=== PATIENT | female | born 1985 | race African-American/Black ===

== ENCOUNTER 2016-07-20 18:09 | Inpatient (IN) | payer OTHER ==
[~2016-07-20] VITALS: Ht 167.6 cm; Wt 118.4 kg
[~2016-07-20 18:09] MED LIST: INSU100I11 SQ; INSU100V8 SQ; OXYC-244 PO; OXYC15TA PO; VALA500T PO
[2016-07-20] MEDS ORDERED: MORPHINE SULFATE 4 MG/ML DISP.SYRIN. IV ONE (19:30)
[2016-07-20] MEDS ORDERED: ONDANSETRON PF 4 MG/2 ML VIAL. IV ONE (19:30)
[2016-07-20] MEDS ORDERED: LIDOCAINE 1% / SOD BICARB 8.4% 20 ML VIAL. IJ ONE (19:30)
[2016-07-20] MEDS ORDERED: DIPHTH,PERTUSS(ACELL),TET TOX 0.5 ML DISP.SYRIN. VAX IM ONE (19:30)
--- NOTE | 2016-07-20 19:31 | PHYS DOC ---
Past Medical History Past Medical History: Diabetes-Type II, Other Additional Past Medical Histor: Genital Herpes. Past Surgical History: No Surgical History Alcohol Use: None Drug Use: None Adult General Chief Complaint Chief Complaint: ABSCESS HPI HPI Patient is a 30 year old female presents emergency department stating that she has an abscess on her right buttocks comes in to the groin area. She states that she's had these areas for approximately 2 weeks. She states that the areas very tender and warm to touch with no drainage or discharge noted she states that she's been having some fevers with chills and occasional nausea and vomiting. She does state she is an insulin-dependent diabetic. States her glucose is been running approximately 120s. Patient is unsure when her last tetanus immunization occurred. Review of Systems Review of Systems Constitutional: Denies fever or chills [] Eyes: Denies change in visual acuity, redness, or eye pain [] HENT: Denies nasal congestion or sore throat [] Respiratory: Denies cough or shortness of breath [] Cardiovascular: No additional information not addressed in HPI [] GI: Denies abdominal pain, nausea, vomiting, bloody stools or diarrhea [] : Denies dysuria or hematuria [] Musculoskeletal: Denies back pain or joint pain [] Integument: Denies rash or skin lesions. Abscess to the right buttock into the perineal area Neurologic: Denies headache, focal weakness or sensory changes [] Current Medications Current Medications Current Medications Medications (Trade) Dose Ordered Sig/Aramis Start Time Stop Time Status Last Admin Dose Admin Diphtheria/ Tetanus/Acell Pertussis (Boostrix) 0.5 ml ONCE ONCE 07/20/16 19:30 07/20/16 19:31 DC 07/20/16 19:54 0.5 ML Lidocaine/Sodium Bicarbonate (Buffered Lidocaine 1%) 20 ml 1X ONCE 07/20/16 19:30 07/20/16 19:31 DC 07/20/16 20:17 20 ML Morphine Sulfate 4 mg PRN Q15MIN PRN 07/20/16 20:30 07/21/16 20:29 07/20/16 20:53 4 MG Ondansetron HCl (Zofran) 4 mg 1X ONCE 07/20/16 19:30 07/20/16 19:31 DC 07/20/16 19:53 4 MG Allergies Allergies Allergies Coded Allergies Type Severity Reaction Last Updated Verified No Known Drug Allergies 11/19/13 No Physical Exam Physical Exam Constitutional: Well developed, well nourished, no acute distress, non-toxic appearance. [] HENT: Normocephalic, atraumatic, bilateral external ears normal, oropharynx moist, no oral exudates, nose normal. [] Eyes: PERRLA, EOMI, conjunctiva normal, no discharge. [] Neck: Normal range of motion, no tenderness, supple, no stridor. [] Cardiovascular:Heart rate regular rhythm, no murmur [] Lungs & Thorax: Bilateral breath sounds clear to auscultation [] Skin: Warm, dry, no erythema, no rash. Abscess noted to the right buttock area with tenderness, redness and areas appearing soft indurated. Back: No tenderness Extremities: No tenderness, no cyanosis, no clubbing, ROM intact, no edema. [] Neurologic: Alert and oriented X 3, normal motor function, normal sensory function, no focal deficits noted. [] Psychologic: Affect normal, judgement normal, mood normal. [] Current Patient Data Vital Signs Vital Signs Date Time Temp Pulse Resp B/P Pulse Ox O2 Delivery O2 Flow Rate FiO2 07/20/16 20:09 98 150/69 96 Room Air 07/20/16 19:54 20 07/20/16 18:32 98.8 98.8 Lab Values Laboratory Tests Test 07/20/16 19:38 White Blood Count 15.8x10^3/uL (4.0-11.0) H Red Blood Count 5.10x10^6/uL (3.50-5.40) Hemoglobin 13.6g/dL (12.0-15.5) Hematocrit 41.3% (36.0-47.0) Mean Corpuscular Volume 81fL (79-100) Mean Corpuscular Hemoglobin 27pg (25-35) Mean Corpuscular Hemoglobin Concent 33g/dL (31-37) Red Cell Distribution Width 13.0% (11.5-14.5) Platelet Count 368x10^3/uL (140-400) Neutrophils (%) (Auto) 69% (31-73) Lymphocytes (%) (Auto) 22% (24-48) L Monocytes (%) (Auto) 9% (0-9) Eosinophils (%) (Auto) 0% (0-3) Basophils (%) (Auto) 1% (0-3) Neutrophils # (Auto) 10.9x10^3uL (1.8-7.7) H Lymphocytes # (Auto) 3.4x10^3/uL (1.0-4.8) Monocytes # (Auto) 1.4x10^3/uL (0.0-1.1) H Eosinophils # (Auto) 0.1x10^3/uL (0.0-0.7) Basophils # (Auto) 0.1x10^3/uL (0.0-0.2) Sodium Level 136mmol/L (136-145) Potassium Level 3.8mmol/L (3.5-5.1) Chloride Level 95mmol/L (98-107) L Carbon Dioxide Level 27mmol/L (21-32) Anion Gap 14 (6-14) Blood Urea Nitrogen 7mg/dL (7-20) Creatinine 0.8mg/dL (0.6-1.0) Estimated GFR (Cockcroft-Gault) 102.6 BUN/Creatinine Ratio 9 (6-20) Glucose Level 444mg/dL (70-99) H Calcium Level 10.4mg/dL (8.5-10.1) H Total Bilirubin 0.5mg/dL (0.2-1.0) Aspartate Amino Transferase (AST) 9U/L (15-37) L Alanine Aminotransferase (ALT) 17U/L (14-59) Alkaline Phosphatase 90U/L (46-116) Total Protein 9.5g/dL (6.4-8.2) H Albumin 3.6g/dL (3.4-5.0) Albumin/Globulin Ratio 0.6 (1.0-1.7) L Laboratory Tests 07/20/16 19:38 Laboratory Tests 07/20/16 19:38 EKG EKG [] Radiology/Procedures Radiology/Procedures [] Course & Med Decision Making Course & Med Decision Making Pertinent Labs and Imaging studies reviewed. (See chart for details) Attempted to I&D the areas on the left buttocks with patient unable to cooperate due to pain. Call was placed to Dr. Thompson who is on-call for Dr. Mays in regards to patient being admitted into the hospital for IV antibiotics as well as pain is of her glucoses and a surgical consult from the abscess drainage. Redrawn agreed with admission. Orders was written. [] Dragon Disclaimer Dragon Disclaimer This electronic medical record was generated, in whole or in part, using a voice recognition dictation system. Departure Departure Impression: Primary Impression: Abscess Additional Impressions: Cellulitis Hyperglycemia Disposition: 09 ADMITTED INPATIENT Admitting Physician: Other (Dr Faye Thompson) Referrals: EUGENIA MAYS MD (PCP) Problem Qualifiers ABDULKADIR DACOSTA [employer]LY[employer] Jul 20, 2016 19:31
[2016-07-20 20:06] LABS: BASO # 0.1 x10^3/uL (0.0-0.2); BASO % 1 % (0-3); EOS % 0 % (0-3); HEMATOCRIT 41.3 % (36.0-47.0); HEMOGLOBIN 13.6 g/dL (12.0-15.5); LYMPH # 3.4 x10^3/uL (1.0-4.8); LYMPH % 22 % (24-48); MEAN CORPUSCULAR HEMOGLOBIN 27 pg (25-35); MEAN CORPUSCULAR HGB CONC 33 g/dL (31-37); MEAN CORPUSCULAR VOLUME 81 fL (79-100); MONO % 9 % (0-9); NEUT % 69 % (31-73); PLATELET COUNT 368 x10^3/uL (140-400); WHITE BLOOD COUNT 15.8 x10^3/uL (4.0-11.0)
[2016-07-20 20:19] LABS: CALCIUM 10.4 mg/dL (8.5-10.1); CREATININE 0.8 mg/dL (0.6-1.0); GFR 102.6; POTASSIUM 3.8 mmol/L (3.5-5.1)
[2016-07-20 20:24] LABS: ALBUMIN 3.6 g/dL (3.4-5.0); ALBUMIN/GLOBULIN RATIO 0.6 (1.0-1.7); TOTAL BILIRUBIN 0.5 mg/dL (0.2-1.0); TOTAL PROTEIN 9.5 g/dL (6.4-8.2)
[2016-07-20] MEDS ORDERED: MORPHINE SULFATE 4 MG/ML DISP.SYRIN. IV/SQ PRN (20:30)
[2016-07-20] MEDS ORDERED: INSULIN REGULAR 100 UNIT/ML 10ML VIAL. SQ ONE (20:45)
[2016-07-20] MEDS ORDERED: IV NORMAL SALINE 1000ML BAG 1,000 ML IV ONE (20:45)
[2016-07-20] MEDS ORDERED: ONDANSETRON PF 4 MG/2 ML VIAL. IV PRN (21:15)
[2016-07-20 21:48] VITALS: BP 127/56
--- NOTE | 2016-07-20 21:53 | ACF ---
Admission Forms Criteria CELLULITIS Clinical Indications for Admission to Inpatient Care (Place 'X' for any and all applicable criteria): Admission is indicated for ANY ONE of the following(1)(2)(3)(4)(5): [ ]I. Limb-threatening infection [ ]II. High-risk comorbid condition as indicated by ANY ONE of the following: [ ]a) Uncontrolled diabetes (eg, HbA1c greater than 10% (0.1)) [ ]b) Cirrhosis [ ]c) Neutropenia [ ]d) Asplenia [ ]e) Immunosuppression [ ]f) Symptomatic heart failure [ ]III. Failure of outpatient therapy as indicated by ALL of the following: [ ]a) Progression or no improvement after adequate trial (minimum of 48 hours, with longer period for stable lower extremity infection) [ ]b) Adequate antibiotic regimen as indicated by use of ANY ONE of the following: [ ]i) First-generation cephalosporin (e.g., cephalexin) [ ]ii) Antistaphylococcal penicillin (e.g., dicloxacillin) [ ]iii) Penicillin-allergic patient regimen (clindamycin, extended-spectrum fluoroquinolone, or doxycycline) [ ]iv) Resistant organism (eg, methicillin-resistant Staphylococcus aureus) regimen (6) [ ]c) Outpatient intravenous therapy regimen is not appropriate due to ANY ONE of the following. (7)(8)(9)(10): [ ]i) It was tried and was not successful (eg, progression of infection). [ ]ii) It is not available or cannot be arranged in a clinically appropriate time frame (e.g., the next day). [ ]iii) Clinical presentation (eg, acuity of infection, rapidity of progression, confirmed or suspected bacteremia) is judged to require ALL of the following: [ ]1) Immediate initiation of intravenous therapy ( eg, cannot wait for next day) [ ]2) Intensity of patient monitoring and observation (eg, vital sign measurement, checks for infection progression) that cannot be provided at other than inpatient level of care [ ]IV. Mental status changes [ ]V. Bacteremia [ ]. Hemodynamic instability [ ]VII. Suspected necrotizing soft tissue infection (e.g., gas in tissue)(11)( 12) [ ]VIII. Orbital infection (13)(14) [ ]IX. Associated surgical procedure (e.g., abscess drainage, debridement) not amenable to outpatient, emergency department, or observation care [ ]X. Cutaneous gangrene [ ]XI. High fever (temperature greater than 39.5 degrees C (103.1 degrees F) (oral)) not responsive to outpatient, emergency department, or observation care therapy [X]XIII. Inpatient admission required rather than observation care (Also use Cellulitis: Observation Care as appropriate) because of ANY ONE of the following : [ ]a) Periorbital or perineal infection that is severe or worsening [ ]b) Severe pain requiring acute inpatient management [ ]c) IV fluid to replace significant ongoing (e.g., for over 24 hours) losses (greater than 3L/m2 per day) [ ]d) Compartment syndrome monitoring (17) [ ]e) Strict or protective (eg, laminar flow) isolation [ ]f) Urgent debridement or skin grafting [ ]g) Bone or joint debridement [ ]h) Immediate inpatient surgery [X]i) Other condition, treatment or monitoring requiring inpatient admission Extended stay beyond goal length of stay may be needed for (1)(18): [ ]a) Necrotizing soft tissue infection or fasciitis [ ]b) Gram-negative infection [ ]c) Methicillin-resistant Staphylococcal aureus (MRSA) infection [ ]d) Peripheral venous insufficiency with cellulitis [ ]e) Extensive edema [ ]f) Sepsis or continued Hemodynamic instability [ ]g) Continued high fever or mental status change [ ]h) Bacteremia [ ]i) Active serious comorbid conditions ( eg, heart failure, renal insufficiency) The original [employer] content created by [employer] has been revised. The portions of the content which have been revised are identified through the use of italic text or in bold, and [facility] has neither reviewed nor approved the modified material. All other unmodified content is copyright [facility] Please see references footnoted in the original [facility] edition 2016 Admission Criteria Met?: Yes DEREK DUARTE Jul 20, 2016 21:53
[2016-07-20] MEDS ORDERED: CLINDAMYCIN 600MG PREMIX 50 ML IV ONE (22:00)
[2016-07-20] MEDS ORDERED: DEXTROSE 50% 25 GM / 50ML DISP.SYRIN. IV PRN (22:30)
[2016-07-20] MEDS: MORPHINE SULFATE 4 MG/ML DISP.SYRIN. IV PRN (22:46)
[2016-07-20] MEDS: IV NORMAL SALINE 1000ML BAG 1,000 ML IV SCH (22:48)
[2016-07-20] MEDS ORDERED: INSULIN ASPART 300 UNITS/3 ML INSULN.PEN SQ ONE (23:00)
[2016-07-20] MEDS: INSULIN DETEMIR 300 UNITS/3 ML INSULN.PEN. SQ SCH (23:05)
[2016-07-21] VITALS (14 sets, daily range): BP systolic 104–132; BP diastolic 49–76
[2016-07-21] MEDS: MORPHINE SULFATE 4 MG/ML DISP.SYRIN. IV PRN ×5 (03:00→19:24)
[2016-07-21] MEDS: CLINDAMYCIN 600MG PREMIX 50 ML IV SCH ×3 (06:03→22:03)
[2016-07-21 07:36] LABS: BASO # 0.1 x10^3/uL (0.0-0.2); BASO % 0 % (0-3); EOS % 1 % (0-3); HEMATOCRIT 36.3 % (36.0-47.0); HEMOGLOBIN 11.6 g/dL (12.0-15.5); LYMPH # 4.2 x10^3/uL (1.0-4.8); LYMPH % 29 % (24-48); MEAN CORPUSCULAR HEMOGLOBIN 26 pg (25-35); MEAN CORPUSCULAR HGB CONC 32 g/dL (31-37); MEAN CORPUSCULAR VOLUME 81 fL (79-100); MONO % 10 % (0-9); NEUT % 59 % (31-73); PLATELET COUNT 329 x10^3/uL (140-400); RED BLOOD COUNT 4.47 x10^6/uL (3.50-5.40); RED CELL DISTRIBUTION WIDTH 12.9 % (11.5-14.5); WHITE BLOOD COUNT 14.5 x10^3/uL (4.0-11.0)
[2016-07-21 07:46] LABS: CREATININE 0.7 mg/dL (0.6-1.0); GFR 119.7; POTASSIUM 3.5 mmol/L (3.5-5.1)
--- NOTE | 2016-07-21 08:23 | PDOC1 ---
History and Physical Date of Admission Date of Admission DATE: 07/20/16 Identification/Chief Complaint Chief Complaint Leg Pain Source Source: Patient History of Present Illness History of Present Illness Pt states that she has had a boil for the past 2 weeks. She has been trying OTC medications and initially didn't think much of it, but as it continued to enlarge and increase in pain, pt finally decided to come to the ER. States that she has difficulty walking because of the pain. She has had some fevers and chills for the past couple of days. Past Medical History Cardiovascular: HTN Pulmonary: No pertinent hx GI: No pertinent hx Heme/Onc: No pertinent hx Hepatobiliary: No pertinent hx Psych: No pertinent hx Rheumatologic: No pertinent hx Infectious disease: Herpes simplex2 ENT: No pertinent hx Renal/: No pertinent hx Endocrine: Diabetes Dermatology: No pertinent hx Past Surgical History Past Surgical History: , Other (I&D) Family History Family History: Diabetes, Heart Disease, High Cholestrol, Hypertension Social History Smoke: <1 pack per day ALCOHOL: none Drugs: None Current Problem List Problem List Problems Medical Problems: (1) Abscess Status: Acute (2) Cellulitis Status: Acute (3) Hyperglycemia Status: Acute Problems: Current Medications Current Medications Current Medications Morphine Sulfate 4 mg 1X ONCE IV Last administered on 07/20/16 19:54; Start 07/20/16 at 19:30; Stop 07/20/16 at 19:31; Status DC Ondansetron HCl (Zofran) 4 mg 1X ONCE IV Last administered on 07/20/16 19:53 ; Start 07/20/16 at 19:30; Stop 07/20/16 at 19:31; Status DC Lidocaine/Sodium Bicarbonate (Buffered Lidocaine 1%) 20 ml 1X ONCE IJ Last administered on 07/20/16 20:17; Start 07/20/16 at 19:30; Stop 07/20/16 at 19:31 ; Status DC Diphtheria/ Tetanus/Acell Pertussis (Boostrix) 0.5 ml ONCE ONCE VAX IM Last administered on 07/20/16 19:54; Start 07/20/16 at 19:30; Stop 07/20/16 at 19:31 ; Status DC Morphine Sulfate 4 mg 4 mg PRN Q15MIN PRN IV/SQ PAIN GREATER THAN 3/10 Last administered on 07/20/16 20:53; Start 07/20/16 at 20:30; Stop 07/21/16 at 20:29 Sodium Chloride (Iv Sodium Chloride 0.9% 1000ml Bag) 1,000 ml @ 1,000 mls/hr 1X ONCE IV Last administered on 07/20/16 20:45; Start 07/20/16 at 20:45; Stop 07/20/16 at 21:44; Status DC Insulin Human Regular (Novolin R Vial) 10 unit 1X ONCE SQ Last administered on 07/20/16 20:58; Start 07/20/16 at 20:45; Stop 07/20/16 at 20:46; Status DC Ondansetron HCl (Zofran) 4 mg PRN Q8HRS PRN IV NAUSEA/VOMITING; Start 07/20/16 at 21:15; Stop 07/21/16 at 21:14 Morphine Sulfate 4 mg 4 mg PRN Q2HR PRN IV PAIN Last administered on 07/21/16 06:04; Start 07/20/16 at 21:15; Stop 07/21/16 at 21:14 Sodium Chloride 1,000 ml @ 125 mls/hr Q8H IV Last administered on 07/20/16 22 :48; Start 07/20/16 at 21:06; Stop 07/21/16 at 21:05 Clindamycin Phosphate 50 ml @ 100 mls/hr Q8HRS IV Last administered on 06:03; Start 07/21/16 at 06:00 Clindamycin Phosphate (Cleocin 600 Mg Premix) 50 ml @ 100 mls/hr 1X ONCE IV Last administered on 07/20/16 22:47; Start 07/20/16 at 22:00; Stop 07/20/16 at 22:29; Status DC Insulin Detemir (Levemir) 27 units QHS SQ Last administered on 07/20/16 23:05 ; Start 07/20/16 at 23:00 Insulin Aspart (Novolog) 0-7 UNITS TIDWMEALS SQ ; Start 07/21/16 at 08:00 Dextrose 12.5 gm PRN Q15MIN PRN IV SEE COMMENTS; Start 07/20/16 at 22:30 Insulin Aspart (Novolog) 5 units 1X ONCE SQ Last administered on 3/30/17at 23: 06; Start 07/20/16 at 23:00; Stop 07/20/16 at 23:01; Status DC Active Scripts Active Percocet 7.5-325 Mg Tablet (Oxycodone/Acetaminophen) 1 Each Tablet 1 Tab PO Q4HRS PRN Oxycodone Hcl 15 Mg Tablet 15 Mg PO Q6HRS PRN Humalog (Insulin Lispro) 100 Unit/1 Ml Insuln.pen 9 Unit SQ TIDAC Reported Valacyclovir (Valacyclovir Hcl) 500 Mg Tablet 500 Mg PO Lantus (Insulin Glargine,Hum.rec.anlog) 100 Unit/1 Ml Vial 16 Unit SQ QHS Allergies Allergies: Coded Allergies: No Known Drug Allergies (Unverified , 11/19/13) ROS General: YES: Chills, No: Fatigue PSYCHOLOGICAL ROS: No: Anxiety, Depression Eyes: No Decreased vision, No Eye Pain HEENT: No: Nasal congestion, Sore Throat ALLERGY AND IMMUNOLOGY: No: Hives, Post Nasal Drip Hematological and Lymphatic: No: Bleeding Problems, Blood Clots Respiratory: No: Cough, Shortness of breath Cardiovascular: No Chest Pain, No Edema Gastrointestinal: Yes Nausea, Yes Vomiting, No Abdominal Pain, No Constipation, No Diarrhea Genitourinary: No Dysuria, No Urgency Musculoskeletal: No Joint Pain, No Muscle Pain Neurological: No Impaired Coord/balance, No Numbness/Tingling Skin: Yes Skin Lesion Changes, No Rash Physical Exam General: Alert, Oriented X3, Cooperative HEENT: Atraumatic, PERRLA, EOMI, Mucous membr. moist/pink Lungs: Clear to auscultation, Normal air movement Heart: RRR, no rubs, no gallops, no murmurs Abdomen: Normal bowel sounds, Soft, No tenderness, No hepatosplenomegaly Extremities: No clubbing, No cyanosis Skin: Other (large mass with fluctuance under right buttocks) Neuro: Normal speech, Cranial nerves 3-12 NL Psych/Mental Status: Mental status NL, Mood NL Vitals Vitals Vital Signs Date Time Temp Pulse Resp B/P Pulse Ox O2 Delivery O2 Flow Rate FiO2 07/21/16 07:00 98.3 81 20 124/70 96 Room Air 98.3 Labs Labs Laboratory Tests Test 07/20/16 19:38 07/20/16 21:54 07/21/16 07:09 07/21/16 07:23 White Blood Count 15.8x10^3/uL (4.0-11.0) 14.5x10^3/uL (4.0-11.0) Red Blood Count 5.10x10^6/uL (3.50-5.40) 4.47x10^6/uL (3.50-5.40) Hemoglobin 13.6g/dL (12.0-15.5) 11.6g/dL (12.0-15.5) Hematocrit 41.3% (36.0-47.0) 36.3% (36.0-47.0) Mean Corpuscular Volume 81fL (79-100) 81fL (79-100) Mean Corpuscular Hemoglobin 27pg (25-35) 26pg (25-35) Mean Corpuscular Hemoglobin Concent 33g/dL (31-37) 32g/dL (31-37) Red Cell Distribution Width 13.0% (11.5-14.5) 12.9% (11.5-14.5) Platelet Count 368x10^3/uL (140-400) 329x10^3/uL (140-400) Neutrophils (%) (Auto) 69% (31-73) 59% (31-73) Lymphocytes (%) (Auto) 22% (24-48) 29% (24-48) Monocytes (%) (Auto) 9% (0-9) 10% (0-9) Eosinophils (%) (Auto) 0% (0-3) 1% (0-3) Basophils (%) (Auto) 1% (0-3) 0% (0-3) Neutrophils # (Auto) 10.9x10^3uL (1.8-7.7) 8.6x10^3uL (1.8-7.7) Lymphocytes # (Auto) 3.4x10^3/uL (1.0-4.8) 4.2x10^3/uL (1.0-4.8) Monocytes # (Auto) 1.4x10^3/uL (0.0-1.1) 1.4x10^3/uL (0.0-1.1) Eosinophils # (Auto) 0.1x10^3/uL (0.0-0.7) 0.2x10^3/uL (0.0-0.7) Basophils # (Auto) 0.1x10^3/uL (0.0-0.2) 0.1x10^3/uL (0.0-0.2) Sodium Level 136mmol/L (136-145) 139mmol/L (136-145) Potassium Level 3.8mmol/L (3.5-5.1) 3.5mmol/L (3.5-5.1) Chloride Level 95mmol/L (98-107) 101mmol/L (98-107) Carbon Dioxide Level 27mmol/L (21-32) 27mmol/L (21-32) Anion Gap 14 (6-14) 11 (6-14) Blood Urea Nitrogen 7mg/dL (7-20) 6mg/dL (7-20) Creatinine 0.8mg/dL (0.6-1.0) 0.7mg/dL (0.6-1.0) Estimated GFR (Cockcroft-Gault) 102.6 119.7 BUN/Creatinine Ratio 9 (6-20) Glucose Level 444mg/dL (70-99) 236mg/dL (70-99) Calcium Level 10.4mg/dL (8.5-10.1) 9.0mg/dL (8.5-10.1) Total Bilirubin 0.5mg/dL (0.2-1.0) Aspartate Amino Transf (AST/SGOT) 9U/L (15-37) Alanine Aminotransferase (ALT/SGPT) 17U/L (14-59) Alkaline Phosphatase 90U/L (46-116) Total Protein 9.5g/dL (6.4-8.2) Albumin 3.6g/dL (3.4-5.0) Albumin/Globulin Ratio 0.6 (1.0-1.7) Glucose (Fingerstick) 334mg/dL (70-99) 228mg/dL (70-99) Laboratory Tests Test 07/20/16 19:38 07/20/16 21:54 07/21/16 07:09 07/21/16 07:23 White Blood Count 15.8x10^3/uL (4.0-11.0) 14.5x10^3/uL (4.0-11.0) Red Blood Count 5.10x10^6/uL (3.50-5.40) 4.47x10^6/uL (3.50-5.40) Hemoglobin 13.6g/dL (12.0-15.5) 11.6g/dL (12.0-15.5) Hematocrit 41.3% (36.0-47.0) 36.3% (36.0-47.0) Mean Corpuscular Volume 81fL (79-100) 81fL (79-100) Mean Corpuscular Hemoglobin 27pg (25-35) 26pg (25-35) Mean Corpuscular Hemoglobin Concent 33g/dL (31-37) 32g/dL (31-37) Red Cell Distribution Width 13.0% (11.5-14.5) 12.9% (11.5-14.5) Platelet Count 368x10^3/uL (140-400) 329x10^3/uL (140-400) Neutrophils (%) (Auto) 69% (31-73) 59% (31-73) Lymphocytes (%) (Auto) 22% (24-48) 29% (24-48) Monocytes (%) (Auto) 9% (0-9) 10% (0-9) Eosinophils (%) (Auto) 0% (0-3) 1% (0-3) Basophils (%) (Auto) 1% (0-3) 0% (0-3) Neutrophils # (Auto) 10.9x10^3uL (1.8-7.7) 8.6x10^3uL (1.8-7.7) Lymphocytes # (Auto) 3.4x10^3/uL (1.0-4.8) 4.2x10^3/uL (1.0-4.8) Monocytes # (Auto) 1.4x10^3/uL (0.0-1.1) 1.4x10^3/uL (0.0-1.1) Eosinophils # (Auto) 0.1x10^3/uL (0.0-0.7) 0.2x10^3/uL (0.0-0.7) Basophils # (Auto) 0.1x10^3/uL (0.0-0.2) 0.1x10^3/uL (0.0-0.2) Sodium Level 136mmol/L (136-145) 139mmol/L (136-145) Potassium Level 3.8mmol/L (3.5-5.1) 3.5mmol/L (3.5-5.1) Chloride Level 95mmol/L (98-107) 101mmol/L (98-107) Carbon Dioxide Level 27mmol/L (21-32) 27mmol/L (21-32) Anion Gap 14 (6-14) 11 (6-14) Blood Urea Nitrogen 7mg/dL (7-20) 6mg/dL (7-20) Creatinine 0.8mg/dL (0.6-1.0) 0.7mg/dL (0.6-1.0) Estimated GFR (Cockcroft-Gault) 102.6 119.7 BUN/Creatinine Ratio 9 (6-20) Glucose Level 444mg/dL (70-99) 236mg/dL (70-99) Calcium Level 10.4mg/dL (8.5-10.1) 9.0mg/dL (8.5-10.1) Total Bilirubin 0.5mg/dL (0.2-1.0) Aspartate Amino Transf (AST/SGOT) 9U/L (15-37) Alanine Aminotransferase (ALT/SGPT) 17U/L (14-59) Alkaline Phosphatase 90U/L (46-116) Total Protein 9.5g/dL (6.4-8.2) Albumin 3.6g/dL (3.4-5.0) Albumin/Globulin Ratio 0.6 (1.0-1.7) Glucose (Fingerstick) 334mg/dL (70-99) 228mg/dL (70-99) VTE Prophylaxis Ordered VTE Prophylaxis Devices: No VTE Pharmacological Prophylaxi: No Assessment/Plan Assessment/Plan Pt is a 30yo AAF admitted for large gluteal abscess on the right side 1)Gluteal abscess- with elevated WBC. Surgery has been consulted. She is receiving Clindamycin and has medication available for pain. 2)DM2- poorly controlled. Pt has SSI available and Levemir 27 units. States has been controlled at home, could be elevated 2/2 infection 3)Anemia- mild, no active bleeding 4)HTN- well controlled with Nifedipine 60mg ER CHRIS BRAUN MD Jul 21, 2016 08:23
[2016-07-21] MEDS: IV NORMAL SALINE 1000ML BAG 1,000 ML IV SCH ×2 (08:48→13:06)
[2016-07-21] MEDS: INSULIN ASPART 300 UNITS/3 ML INSULN.PEN SQ SCH ×3 (08:54→18:02)
[2016-07-21] MEDS ORDERED: IV RINGERS,LACTATED 1000ML 1,000 ML IV SCH (12:28)
[2016-07-21] MEDS ORDERED: ONDANSETRON PF 4 MG/2 ML VIAL. IV PRN (12:30)
[2016-07-21] MEDS ORDERED: HYDROMORPHONE 2 MG/ML VIAL. IV PRN (12:30)
[2016-07-21] MEDS ORDERED: LIDOCAINE 1% 1 ML SYRINGE. ID PRN (12:30)
[2016-07-21] MEDS ORDERED: FENTANYL PF 100 MCG/2 ML VIAL. IV PRN (12:30)
[2016-07-21] MEDS ORDERED: PROCHLORPERAZINE 10 MG/2 ML VIAL. IV PRN (12:30)
[2016-07-21] MEDS ORDERED: MORPHINE SULFATE 2 MG/ML DISP.SYRIN. IV PRN (12:30)
--- NOTE | 2016-07-21 12:37 | PDOC2 ---
CONSULT Date of Consult Date of Consult DATE: 07/21/16 TIME: 12:33 Reason for Consult Reason for Consult: Right gluteal abscess Referring Physician Referring Physician: Jay Identification/Chief Complaint Chief Complaint Right buttock pain and swelling Source Source: Patient History of Present Illness Reason for Visit: 30 yo obese female with several weeks history of right buttock pain and swelling which became worse yesterday. Past Medical History Endocrine: Diabetes Past Surgical History Past Surgical History: No pertinent history Family History Family History: Diabetes Social History ALCOHOL: none Drugs: None Current Problem List Problem List Problems Medical Problems: (1) Abscess Status: Acute (2) Cellulitis Status: Acute (3) Hyperglycemia Status: Acute Current Medications Current Medications Current Medications Morphine Sulfate 4 mg 1X ONCE IV Last administered on 07/20/16 19:54; Start 07/20/16 at 19:30; Stop 07/20/16 at 19:31; Status DC Ondansetron HCl (Zofran) 4 mg 1X ONCE IV Last administered on 07/20/16 19:53 ; Start 07/20/16 at 19:30; Stop 07/20/16 at 19:31; Status DC Lidocaine/Sodium Bicarbonate (Buffered Lidocaine 1%) 20 ml 1X ONCE IJ Last administered on 07/20/16 20:17; Start 07/20/16 at 19:30; Stop 07/20/16 at 19:31 ; Status DC Diphtheria/ Tetanus/Acell Pertussis (Boostrix) 0.5 ml ONCE ONCE VAX IM Last administered on 07/20/16 19:54; Start 07/20/16 at 19:30; Stop 07/20/16 at 19:31 ; Status DC Morphine Sulfate 4 mg 4 mg PRN Q15MIN PRN IV/SQ PAIN GREATER THAN 3/10 Last administered on 07/20/16 20:53; Start 07/20/16 at 20:30; Stop 07/21/16 at 20:29 Sodium Chloride (Iv Sodium Chloride 0.9% 1000ml Bag) 1,000 ml @ 1,000 mls/hr 1X ONCE IV Last administered on 07/20/16 20:45; Start 07/20/16 at 20:45; Stop 07/20/16 at 21:44; Status DC Insulin Human Regular (Novolin R Vial) 10 unit 1X ONCE SQ Last administered on 07/20/16 20:58; Start 07/20/16 at 20:45; Stop 07/20/16 at 20:46; Status DC Ondansetron HCl (Zofran) 4 mg PRN Q8HRS PRN IV NAUSEA/VOMITING; Start 07/20/16 at 21:15; Stop 07/21/16 at 21:14 Morphine Sulfate 4 mg 4 mg PRN Q2HR PRN IV PAIN Last administered on 07/21/16 12:22; Start 07/20/16 at 21:15; Stop 07/21/16 at 21:14 Sodium Chloride 1,000 ml @ 125 mls/hr Q8H IV Last administered on 07/21/16 08 :48; Start 07/20/16 at 21:06; Stop 07/21/16 at 21:05 Clindamycin Phosphate 50 ml @ 100 mls/hr Q8HRS IV Last administered on 06:03; Start 07/21/16 at 06:00 Clindamycin Phosphate (Cleocin 600 Mg Premix) 50 ml @ 100 mls/hr 1X ONCE IV Last administered on 07/20/16 22:47; Start 07/20/16 at 22:00; Stop 07/20/16 at 22:29; Status DC Insulin Detemir (Levemir) 27 units QHS SQ Last administered on 07/20/16 23:05 ; Start 07/20/16 at 23:00 Insulin Aspart (Novolog) 0-7 UNITS TIDWMEALS SQ Last administered on 07/21/16 12:25; Start 07/21/16 at 08:00 Dextrose 12.5 gm PRN Q15MIN PRN IV SEE COMMENTS; Start 07/20/16 at 22:30 Insulin Aspart (Novolog) 5 units 1X ONCE SQ Last administered on 07/20/16 23: 06; Start 07/20/16 at 23:00; Stop 07/20/16 at 23:01; Status DC Ondansetron HCl (Zofran) 0.4 mg PRN Q6HRS PRN IV NAUSEA/VOMITING; Start at 12:30; Stop 07/22/16 at 12:29; Status UNV Fentanyl Citrate (Fentanyl 2ml Vial) 25 mcg PRN Q5MIN PRN IV MILD PAIN; Start 07/21/16 at 12:30; Stop 07/22/16 at 12:29; Status UNV Fentanyl Citrate (Fentanyl 2ml Vial) 50 mcg PRN Q5MIN PRN IV MODERATE PAIN; Start 07/21/16 at 12:30; Stop 07/22/16 at 12:29; Status UNV Morphine Sulfate 1 mg 1 mg PRN Q10MIN PRN IV SEVERE PAIN; Start 07/21/16 at 12: 30; Stop 07/22/16 at 12:29; Status UNV Lactated Ringer's (Iv Lactated Ringers) 1,000 ml @ 0 mls/hr Q0M IV ; Start at 12:28; Stop 07/22/16 at 00:27; Status UNV Lidocaine HCl 2 ml PRN 1X PRN ID PRIOR TO IV START; Start 07/21/16 at 12:30; Stop 07/22/16 at 12:29; Status UNV Hydromorphone HCl (Dilaudid) 0.5 mg PRN Q10MIN PRN IV SEV PAIN, Second choice; Start 07/21/16 at 12:30; Stop 07/22/16 at 12:29; Status UNV Prochlorperazine Edisylate (Compazine) 5 mg PACU PRN PRN IV NAUSEA, MRX1; Start 07/21/16 at 12:30; Stop 07/22/16 at 12:29; Status UNV Active Scripts Active Percocet 7.5-325 Mg Tablet (Oxycodone/Acetaminophen) 1 Each Tablet 1 Tab PO Q4HRS PRN Oxycodone Hcl 15 Mg Tablet 15 Mg PO Q6HRS PRN Humalog (Insulin Lispro) 100 Unit/1 Ml Insuln.pen 9 Unit SQ TIDAC Reported Valacyclovir (Valacyclovir Hcl) 500 Mg Tablet 500 Mg PO Lantus (Insulin Glargine,Hum.rec.anlog) 100 Unit/1 Ml Vial 16 Unit SQ QHS Allergies Allergies: Coded Allergies: No Known Drug Allergies (Unverified , 11/19/13) ROS Skin: Yes Other (swelling right buttock) Physical Exam General: Alert, Oriented X3, Cooperative, moderate distress HEENT: Atraumatic, PERRLA, EOMI Lungs: Clear to auscultation, Normal air movement Heart: Regular rate, No murmurs Abdomen: Normal bowel sounds, Soft, No tenderness Extremities: No edema Skin: Other (right pernieum sweeling and erythema) Neuro: Normal speech Psych/Mental Status: Mental status NL Vitals VITALS Vital Signs Date Time Temp Pulse Resp B/P Pulse Ox O2 Delivery O2 Flow Rate FiO2 07/21/16 12:22 Room Air 07/21/16 11:00 99.2 77 16 122/56 93 99.2 Labs Labs Laboratory Tests Test 07/20/16 19:38 07/20/16 21:54 07/21/16 07:09 07/21/16 07:23 White Blood Count 15.8x10^3/uL (4.0-11.0) 14.5x10^3/uL (4.0-11.0) Red Blood Count 5.10x10^6/uL (3.50-5.40) 4.47x10^6/uL (3.50-5.40) Hemoglobin 13.6g/dL (12.0-15.5) 11.6g/dL (12.0-15.5) Hematocrit 41.3% (36.0-47.0) 36.3% (36.0-47.0) Mean Corpuscular Volume 81fL (79-100) 81fL (79-100) Mean Corpuscular Hemoglobin 27pg (25-35) 26pg (25-35) Mean Corpuscular Hemoglobin Concent 33g/dL (31-37) 32g/dL (31-37) Red Cell Distribution Width 13.0% (11.5-14.5) 12.9% (11.5-14.5) Platelet Count 368x10^3/uL (140-400) 329x10^3/uL (140-400) Neutrophils (%) (Auto) 69% (31-73) 59% (31-73) Lymphocytes (%) (Auto) 22% (24-48) 29% (24-48) Monocytes (%) (Auto) 9% (0-9) 10% (0-9) Eosinophils (%) (Auto) 0% (0-3) 1% (0-3) Basophils (%) (Auto) 1% (0-3) 0% (0-3) Neutrophils # (Auto) 10.9x10^3uL (1.8-7.7) 8.6x10^3uL (1.8-7.7) Lymphocytes # (Auto) 3.4x10^3/uL (1.0-4.8) 4.2x10^3/uL (1.0-4.8) Monocytes # (Auto) 1.4x10^3/uL (0.0-1.1) 1.4x10^3/uL (0.0-1.1) Eosinophils # (Auto) 0.1x10^3/uL (0.0-0.7) 0.2x10^3/uL (0.0-0.7) Basophils # (Auto) 0.1x10^3/uL (0.0-0.2) 0.1x10^3/uL (0.0-0.2) Sodium Level 136mmol/L (136-145) 139mmol/L (136-145) Potassium Level 3.8mmol/L (3.5-5.1) 3.5mmol/L (3.5-5.1) Chloride Level 95mmol/L (98-107) 101mmol/L (98-107) Carbon Dioxide Level 27mmol/L (21-32) 27mmol/L (21-32) Anion Gap 14 (6-14) 11 (6-14) Blood Urea Nitrogen 7mg/dL (7-20) 6mg/dL (7-20) Creatinine 0.8mg/dL (0.6-1.0) 0.7mg/dL (0.6-1.0) Estimated GFR (Cockcroft-Gault) 102.6 119.7 BUN/Creatinine Ratio 9 (6-20) Glucose Level 444mg/dL (70-99) 236mg/dL (70-99) Calcium Level 10.4mg/dL (8.5-10.1) 9.0mg/dL (8.5-10.1) Total Bilirubin 0.5mg/dL (0.2-1.0) Aspartate Amino Transf (AST/SGOT) 9U/L (15-37) Alanine Aminotransferase (ALT/SGPT) 17U/L (14-59) Alkaline Phosphatase 90U/L (46-116) Total Protein 9.5g/dL (6.4-8.2) Albumin 3.6g/dL (3.4-5.0) Albumin/Globulin Ratio 0.6 (1.0-1.7) Glucose (Fingerstick) 334mg/dL (70-99) 228mg/dL (70-99) Test 07/21/16 11:40 Glucose (Fingerstick) 235mg/dL (70-99) Laboratory Tests Test 07/20/16 19:38 07/20/16 21:54 07/21/16 07:09 07/21/16 07:23 White Blood Count 15.8x10^3/uL (4.0-11.0) 14.5x10^3/uL (4.0-11.0) Red Blood Count 5.10x10^6/uL (3.50-5.40) 4.47x10^6/uL (3.50-5.40) Hemoglobin 13.6g/dL (12.0-15.5) 11.6g/dL (12.0-15.5) Hematocrit 41.3% (36.0-47.0) 36.3% (36.0-47.0) Mean Corpuscular Volume 81fL (79-100) 81fL (79-100) Mean Corpuscular Hemoglobin 27pg (25-35) 26pg (25-35) Mean Corpuscular Hemoglobin Concent 33g/dL (31-37) 32g/dL (31-37) Red Cell Distribution Width 13.0% (11.5-14.5) 12.9% (11.5-14.5) Platelet Count 368x10^3/uL (140-400) 329x10^3/uL (140-400) Neutrophils (%) (Auto) 69% (31-73) 59% (31-73) Lymphocytes (%) (Auto) 22% (24-48) 29% (24-48) Monocytes (%) (Auto) 9% (0-9) 10% (0-9) Eosinophils (%) (Auto) 0% (0-3) 1% (0-3) Basophils (%) (Auto) 1% (0-3) 0% (0-3) Neutrophils # (Auto) 10.9x10^3uL (1.8-7.7) 8.6x10^3uL (1.8-7.7) Lymphocytes # (Auto) 3.4x10^3/uL (1.0-4.8) 4.2x10^3/uL (1.0-4.8) Monocytes # (Auto) 1.4x10^3/uL (0.0-1.1) 1.4x10^3/uL (0.0-1.1) Eosinophils # (Auto) 0.1x10^3/uL (0.0-0.7) 0.2x10^3/uL (0.0-0.7) Basophils # (Auto) 0.1x10^3/uL (0.0-0.2) 0.1x10^3/uL (0.0-0.2) Sodium Level 136mmol/L (136-145) 139mmol/L (136-145) Potassium Level 3.8mmol/L (3.5-5.1) 3.5mmol/L (3.5-5.1) Chloride Level 95mmol/L (98-107) 101mmol/L (98-107) Carbon Dioxide Level 27mmol/L (21-32) 27mmol/L (21-32) Anion Gap 14 (6-14) 11 (6-14) Blood Urea Nitrogen 7mg/dL (7-20) 6mg/dL (7-20) Creatinine 0.8mg/dL (0.6-1.0) 0.7mg/dL (0.6-1.0) Estimated GFR (Cockcroft-Gault) 102.6 119.7 BUN/Creatinine Ratio 9 (6-20) Glucose Level 444mg/dL (70-99) 236mg/dL (70-99) Calcium Level 10.4mg/dL (8.5-10.1) 9.0mg/dL (8.5-10.1) Total Bilirubin 0.5mg/dL (0.2-1.0) Aspartate Amino Transf (AST/SGOT) 9U/L (15-37) Alanine Aminotransferase (ALT/SGPT) 17U/L (14-59) Alkaline Phosphatase 90U/L (46-116) Total Protein 9.5g/dL (6.4-8.2) Albumin 3.6g/dL (3.4-5.0) Albumin/Globulin Ratio 0.6 (1.0-1.7) Glucose (Fingerstick) 334mg/dL (70-99) 228mg/dL (70-99) Test 07/21/16 11:40 Glucose (Fingerstick) 235mg/dL (70-99) Assessment/Plan Assessment/Plan Right gluteal abscess Plan I&D MIGUEL GILLIAM MD Jul 21, 2016 12:37
[2016-07-21] MEDS: NIFEDIPINE ER 30 MG TAB.ER.24H PO SCH (13:00)
[2016-07-21] MEDS ORDERED: FENTANYL PF 100 MCG/2 ML VIAL. ONE (14:23)
[2016-07-21] MEDS ORDERED: PROPOFOL 20 ML IV ONE (14:23)
[2016-07-21] MEDS ORDERED: LIDOCAINE 2% 100 MG/5 ML DISP.SYRIN. ONE (14:23)
[2016-07-21] MEDS ORDERED: SEVOFLURANE 16 TO 30 MINUTES. IH ONE (14:23)
[2016-07-21] MEDS ORDERED: GLYCOPYRROLATE 1 MG/5 ML VIAL. ONE (14:23)
[2016-07-21] MEDS ORDERED: NEOSTIGMINE METHYLSULFATE 5 MG/5 ML SYRINGE. ONE (14:36)
[2016-07-21] MEDS ORDERED: INSULIN ASPART 100 UNIT/ML 10ML VIAL. SQ ONE (14:41)
[2016-07-21] MEDS ORDERED: INSULIN ASPART 300 UNITS/3 ML INSULN.PEN SQ ONE ×2 (14:45→22:30)
[2016-07-21] MEDS ORDERED: BUPIVACAINE-EPI 0.25%-1:200000 MPF 30 ML VIAL. ONE (15:06)
[2016-07-21] MEDS ORDERED: MORPHINE SULFATE 10 MG/ML VIAL. ONE (15:28)
--- NOTE | 2016-07-21 15:38 | PDOC ---
BRIEF OPERATIVE NOTE Date: Jul 21, 2016 Pre-Op Diagnosis Right gluteal abscess Post-Op Diagnosis Same Procedure Performed I&D abscess Surgeon Jasvir Anesthesia Type: General Blood Loss 20ml Specimens Obtained Cultures Findings as above Complications None MIGUEL GILLIAM MD Jul 21, 2016 15:38
[2016-07-21] MEDS ORDERED: OXYCODONE/APAP 5/325 TABLET. PO PRN (15:45)
[2016-07-21] MEDS: FENTANYL PF 100 MCG/2 ML VIAL. IV PRN ×2 (16:03→16:38)
--- NOTE | 2016-07-21 16:46 | OP ---
DATE OF SURGERY: 07/21/2016 PREOPERATIVE DIAGNOSIS: Right gluteal abscess. POSTOPERATIVE DIAGNOSIS: Right gluteal abscess. PROCEDURE: Incision and drainage, right gluteal abscess. SURGEON: Varun Gilliam MD. INDICATIONS: The patient a 30-year-old female, morbidly obese, and diabetic who was admitted to the hospital with enlarging mass in the right gluteal area with erythema and some drainage. Procedure of incision and drainage was explained to the patient in detail. Risks, benefits were also discussed including bleeding and infection. Alternatives of this procedure were also discussed with the patient who seemed to understand and gave verbal and written consent to have the procedure performed. DESCRIPTION OF PROCEDURE: The patient was taken to the operating room and placed in the supine position, general anesthesia was initiated. Once the patient was asleep and intubated, she was placed in high lithotomy positioning. Her perineum was prepped and draped in usual sterile fashion using Betadine scrub and solution. Once this was complete, over the mass, a 11 blade scalpel was used to incise the mass. Copious amounts of purulent material were expressed. This was cultured. The wound was then irrigated with copious amounts of normal saline. Electrocautery was used for hemostasis. The wound was then packed with 1 inch iodoform Nu Gauze, dressed with ABD and mesh panties. The patient was awakened, extubated in the operating room, taken to recovery in stable condition. All sponge, instrument counts listed as correct. Estimated blood loss 10 mL. VARUN GILLIAM MD DR: JITENDRA/ally JOB#: [id number] / [id number]
[2016-07-21] MEDS: INSULIN DETEMIR 300 UNITS/3 ML INSULN.PEN. SQ SCH (22:09)
[2016-07-21] MEDS: OXYCODONE/APAP 5/325 TABLET. PO PRN (22:22)
[2016-07-22] MEDS: OXYCODONE/APAP 5/325 TABLET. PO PRN ×5 (02:56→20:48)
[2016-07-22 03:00] VITALS: BP 127/79
[2016-07-22] MEDS: CLINDAMYCIN 600MG PREMIX 50 ML IV SCH ×3 (06:10→22:12)
[2016-07-22 07:00] VITALS: BP 131/67
[2016-07-22] MEDS: NIFEDIPINE ER 30 MG TAB.ER.24H PO SCH (09:14)
[2016-07-22] MEDS: INSULIN ASPART 300 UNITS/3 ML INSULN.PEN SQ SCH ×3 (09:20→17:00)
--- NOTE | 2016-07-22 10:25 | PDOC ---
SURGICAL PROGRESS NOTE Subjective Feeling much better, less pain. Vital Signs Vital Signs Date Time Temp Pulse Resp B/P Pulse Ox O2 Delivery O2 Flow Rate FiO2 07/22/16 09:14 57 131/67 07/22/16 08:50 Room Air 07/22/16 07:00 98.3 16 92 98.3 07/21/16 16:03 8.0 I&O Intake and Output 07/22/16 07:00 Intake Total 510 ml Output Total 0 ml Balance 510 ml Intake Oral 510 ml Output Urine Total 0 ml # Voids 1 PATIENT HAS A GATES: No General: Alert, Oriented X3, Cooperative, No acute distress Skin: Other (wound dressed with little drainage) Labs Laboratory Tests Test 07/20/16 19:38 07/20/16 21:54 07/21/16 07:09 07/21/16 07:23 White Blood Count 15.8x10^3/uL (4.0-11.0) 14.5x10^3/uL (4.0-11.0) Red Blood Count 5.10x10^6/uL (3.50-5.40) 4.47x10^6/uL (3.50-5.40) Hemoglobin 13.6g/dL (12.0-15.5) 11.6g/dL (12.0-15.5) Hematocrit 41.3% (36.0-47.0) 36.3% (36.0-47.0) Mean Corpuscular Volume 81fL (79-100) 81fL (79-100) Mean Corpuscular Hemoglobin 27pg (25-35) 26pg (25-35) Mean Corpuscular Hemoglobin Concent 33g/dL (31-37) 32g/dL (31-37) Red Cell Distribution Width 13.0% (11.5-14.5) 12.9% (11.5-14.5) Platelet Count 368x10^3/uL (140-400) 329x10^3/uL (140-400) Neutrophils (%) (Auto) 69% (31-73) 59% (31-73) Lymphocytes (%) (Auto) 22% (24-48) 29% (24-48) Monocytes (%) (Auto) 9% (0-9) 10% (0-9) Eosinophils (%) (Auto) 0% (0-3) 1% (0-3) Basophils (%) (Auto) 1% (0-3) 0% (0-3) Neutrophils # (Auto) 10.9x10^3uL (1.8-7.7) 8.6x10^3uL (1.8-7.7) Lymphocytes # (Auto) 3.4x10^3/uL (1.0-4.8) 4.2x10^3/uL (1.0-4.8) Monocytes # (Auto) 1.4x10^3/uL (0.0-1.1) 1.4x10^3/uL (0.0-1.1) Eosinophils # (Auto) 0.1x10^3/uL (0.0-0.7) 0.2x10^3/uL (0.0-0.7) Basophils # (Auto) 0.1x10^3/uL (0.0-0.2) 0.1x10^3/uL (0.0-0.2) Sodium Level 136mmol/L (136-145) 139mmol/L (136-145) Potassium Level 3.8mmol/L (3.5-5.1) 3.5mmol/L (3.5-5.1) Chloride Level 95mmol/L (98-107) 101mmol/L (98-107) Carbon Dioxide Level 27mmol/L (21-32) 27mmol/L (21-32) Anion Gap 14 (6-14) 11 (6-14) Blood Urea Nitrogen 7mg/dL (7-20) 6mg/dL (7-20) Creatinine 0.8mg/dL (0.6-1.0) 0.7mg/dL (0.6-1.0) Estimated GFR (Cockcroft-Gault) 102.6 119.7 BUN/Creatinine Ratio 9 (6-20) Glucose Level 444mg/dL (70-99) 236mg/dL (70-99) Calcium Level 10.4mg/dL (8.5-10.1) 9.0mg/dL (8.5-10.1) Total Bilirubin 0.5mg/dL (0.2-1.0) Aspartate Amino Transf (AST/SGOT) 9U/L (15-37) Alanine Aminotransferase (ALT/SGPT) 17U/L (14-59) Alkaline Phosphatase 90U/L (46-116) Total Protein 9.5g/dL (6.4-8.2) Albumin 3.6g/dL (3.4-5.0) Albumin/Globulin Ratio 0.6 (1.0-1.7) Glucose (Fingerstick) 334mg/dL (70-99) 228mg/dL (70-99) Test 07/21/16 11:40 07/21/16 14:17 07/21/16 16:23 07/21/16 17:29 Glucose (Fingerstick) 235mg/dL (70-99) 267mg/dL (70-99) 212mg/dL (70-99) 209mg/dL (70-99) Test 07/21/16 20:37 07/22/16 07:52 Glucose (Fingerstick) 329mg/dL (70-99) 285mg/dL (70-99) Laboratory Tests Test 07/21/16 11:40 07/21/16 14:17 07/21/16 16:23 07/21/16 17:29 Glucose (Fingerstick) 235mg/dL (70-99) 267mg/dL (70-99) 212mg/dL (70-99) 209mg/dL (70-99) Test 07/21/16 20:37 07/22/16 07:52 Glucose (Fingerstick) 329mg/dL (70-99) 285mg/dL (70-99) Problem List Problems Medical Problems: (1) Abscess Status: Acute (2) Cellulitis Status: Acute (3) Hyperglycemia Status: Acute Assessment/Plan S/P I&D buttock abscess, afebrile, cultures pending Continue abx, local wound care. Problems: MIGUEL GILLIAM MD Jul 22, 2016 10:25
[2016-07-22 11:00] VITALS: BP 134/83
--- NOTE | 2016-07-22 11:02 | PDOC ---
SUBJECTIVE Subjective Pain is controlled. She is eating okay. She hasn't been up out of bed too much. She has not had a dressing change yet. Denies any shortness of breath. OBJECTIVE Vital Signs Vital Signs Date Time Temp Pulse Resp B/P Pulse Ox O2 Delivery O2 Flow Rate FiO2 07/22/16 09:14 57 131/67 07/22/16 08:50 Room Air 07/22/16 07:44 Room Air 07/22/16 07:35 Room Air 07/22/16 07:00 98.3 57 16 131/67 92 Room Air 98.3 07/22/16 04:00 20 96 07/22/16 03:00 97.2 63 18 127/79 91 Room Air 97.2 07/22/16 02:56 20 96 Room Air 07/21/16 23:00 99.2 69 18 109/65 96 Room Air 99.2 07/21/16 22:22 20 96 Room Air 07/21/16 21:00 85 20 126/71 96 Room Air 07/21/16 20:00 Room Air 07/21/16 20:00 86 20 121/76 96 Room Air 07/21/16 19:30 85 20 120/66 97 Room Air 07/21/16 19:24 20 96 Room Air 07/21/16 19:00 88 20 116/61 95 Room Air 07/21/16 18:30 99.1 85 20 104/54 91 Room Air 99.1 07/21/16 18:15 99.1 70 20 128/63 91 Room Air 99.1 07/21/16 18:00 99.1 84 20 111/65 91 Room Air 99.1 07/21/16 17:45 99.1 93 20 121/74 91 Room Air 99.1 07/21/16 17:31 99.1 93 20 123/49 91 Room Air 99.1 07/21/16 17:25 99.1 87 20 119/54 91 Room Air 99.1 07/21/16 17:13 98.9 80 20 117/60 94 Room Air 98.9 07/21/16 16:58 98.9 78 18 108/51 94 Room Air 98.9 07/21/16 16:43 98.9 90 20 125/52 94 Room Air 98.9 07/21/16 16:38 18 95 Room Air 07/21/16 16:28 98.9 88 20 137/67 93 Room Air 98.9 07/21/16 16:13 99.8 88 20 138/67 94 Room Air 99.8 07/21/16 16:03 20 100 Simple Mask 8.0 07/21/16 15:58 86 20 133/67 100 Simple Mask 8 07/21/16 15:43 98.9 95 16 146/76 100 Simple Mask 8 98.9 07/21/16 14:11 101.3 80 20 127/59 97 Room Air 101.3 07/21/16 12:52 Room Air 07/21/16 12:22 Room Air I & O Intake and Output 07/22/16 06:59 Intake Total 510 ml Output Total 0 ml Balance 510 ml Intake Oral 510 ml Output Urine Total 0 ml # Voids 1 PHYSICAL EXAM Physical Exam General: No acute distress. Mental status: Alert and oriented. Chest: Clear to auscultation. Good air movement CV: Normal rate. Regular rhythm. No murmur. Abdomen: Normal bowel sounds. Soft, obese. Not distended. No tenderness. No guarding. No rebound. Extremities: No lower extremity edema. The right gluteal area has a dressing on that is clean dry and intact. There is still some tenderness to the area. ASSESSMENT/PLAN Assessment/Plan 1)Gluteal abscess: Postoperative day #1 status post incision and drainage of abscess. Continue antibiotics per general surgery. Wound care. 2)DM2- poorly controlled. We'll increase her Levemir for now. Continue sliding scale insulin. 3)Anemia- mild, no active bleeding 4)HTN- well controlled with Nifedipine 60mg ER. Continue current medication. Problems: COMMENT Lab Laboratory Tests Test 07/21/16 11:40 07/21/16 14:17 07/21/16 16:23 07/21/16 17:29 Glucose (Fingerstick) 235mg/dL (70-99) 267mg/dL (70-99) 212mg/dL (70-99) 209mg/dL (70-99) Test 07/21/16 20:37 07/22/16 07:52 Glucose (Fingerstick) 329mg/dL (70-99) 285mg/dL (70-99) EUGENIA MAYS MD Jul 22, 2016 11:02
[2016-07-22] MEDS ORDERED: DEXTROSE 50% 25 GM / 50ML DISP.SYRIN. IV PRN (13:30)
[2016-07-22] MEDS: MORPHINE SULFATE 4 MG/ML DISP.SYRIN. IV PRN (14:14)
[2016-07-22 15:00] VITALS: BP 117/60
[2016-07-22] MEDS ORDERED: INSU100I17 SQ (17:20)
[2016-07-22] MEDS ORDERED: INSULIN ASPART 300 UNITS/3 ML INSULN.PEN SQ ONE (17:30)
[2016-07-22] MEDS ORDERED: INSULIN ASPART 300 UNITS/3 ML INSULN.PEN SQ SCH (17:30)
[2016-07-22 19:15] VITALS: BP 130/60
[2016-07-22] MEDS ORDERED: INSULIN DETEMIR 300 UNITS/3 ML INSULN.PEN. SQ SCH (21:00)
[2016-07-22 23:16] VITALS: BP 102/52
[2016-07-23] MEDS: OXYCODONE/APAP 5/325 TABLET. PO PRN ×3 (02:01→13:56)
[2016-07-23 03:24] VITALS: BP 105/45
[2016-07-23] MEDS: CLINDAMYCIN 600MG PREMIX 50 ML IV SCH ×2 (05:46→14:00)
[2016-07-23 07:00] VITALS: BP 136/76
[2016-07-23] MEDS: NIFEDIPINE ER 30 MG TAB.ER.24H PO SCH (08:26)
[2016-07-23] MEDS: INSULIN ASPART 300 UNITS/3 ML INSULN.PEN SQ SCH ×2 (08:30→12:10)
--- NOTE | 2016-07-23 08:59 | PDOC ---
SURGICAL PROGRESS NOTE Subjective Doing well, had dressing change without problems. Vital Signs Vital Signs Date Time Temp Pulse Resp B/P Pulse Ox O2 Delivery O2 Flow Rate FiO2 07/23/16 08:26 79 136/76 07/23/16 08:25 Room Air 07/23/16 07:00 98.5 16 94 98.5 I&O Intake and Output 07/23/16 07:00 Intake Total 540 ml Balance 540 ml Intake Oral 540 ml # Voids 4 # Bowel Movements 1 PATIENT HAS A GATES: No General: Alert, Oriented X3, Cooperative, No acute distress Extremities: Other (Wound dressed) Labs Laboratory Tests Test 07/21/16 11:40 07/21/16 14:17 07/21/16 16:23 07/21/16 17:29 Glucose (Fingerstick) 235mg/dL (70-99) 267mg/dL (70-99) 212mg/dL (70-99) 209mg/dL (70-99) Test 07/21/16 20:37 07/22/16 07:52 07/22/16 11:58 07/22/16 16:59 Glucose (Fingerstick) 329mg/dL (70-99) 285mg/dL (70-99) 233mg/dL (70-99) 342mg/dL (70-99) Test 07/22/16 21:05 07/23/16 07:40 Glucose (Fingerstick) 245mg/dL (70-99) 285mg/dL (70-99) Laboratory Tests Test 07/22/16 11:58 07/22/16 16:59 07/22/16 21:05 07/23/16 07:40 Glucose (Fingerstick) 233mg/dL (70-99) 342mg/dL (70-99) 245mg/dL (70-99) 285mg/dL (70-99) Problem List Problems Medical Problems: (1) Abscess Status: Acute (2) Cellulitis Status: Acute (3) Hyperglycemia Status: Acute Assessment/Plan s/p i&d gluteal abscess Doing well OK to D/C from surgical stand point Local wound care Problems: MIGUEL GILLIAM MD Jul 23, 2016 8:59 am
[2016-07-23 11:00] VITALS: BP 135/76
--- NOTE | 2016-07-23 12:59 | DISCH ---
DISCHARGE INSTRUCTIONS Condition on Discharge Condition on Discharge: Stable Activity After Discharge Activity Instructions for Disc: Activity as tolerated (off work thru 08/01) Diet after Discharge Diet after Discharge: Diabetic No Calorie Level Wound Incision Care Wound/Incision Care: Change dressing (continue current wound care and packing regimen) Checks after Discharge Checks after discharge: Check blood sugar, ac/hs Contacting the DR. after DC Call your doctor for: If your condition worsens Follow-Up Follow up with: Dr Mays in one week. call for appt Follow Up With: General surgery per their rec. Arrangements for wound care clinic Treatment/Equipment after DC Comment: Referral to wound care clinic EUGENIA MAYS MD Jul 23, 2016 12:59
[2016-07-23] MEDS ORDERED: NIFE60TA16 PO (13:04)
[2016-07-23] MEDS ORDERED: OXYC-323 PO (13:04)
--- NOTE | 2016-07-23 13:05 | PDOC ---
Provider Note Provider Note See discharge summary dictation #[id number] EUGENIA MAYS MD Jul 23, 2016 13:05
[2016-07-23 15:00] VITALS: BP 120/62
[2016-07-23] MEDS: MORPHINE SULFATE 4 MG/ML DISP.SYRIN. IV PRN (15:15)
--- NOTE | 2016-07-23 22:25 | DS ---
DATE OF DISCHARGE: 07/23/2016 ATTENDING PHYSICIAN: Eugenia Mays M.D. CHIEF COMPLAINT: Leg pain. HISTORY OF PRESENT ILLNESS: The patient is a 30-year-old female with a history of diabetes mellitus type 2 who had a boil for the past 2 weeks in her right buttock. She tried [id number] medication, did not have much improvement. It continued to enlarge and increasing pain prompting the patient to be evaluated in the Emergency Room. She was having difficulty walking because of the pain. She did state that she had some subjective fevers and chills for the last couple of days. HOSPITAL COURSE: The patient was seen in consultation with General Surgery. She was taken to the OR where she had incision and drainage of the abscess. She was placed on clindamycin IV initially. At the time of discharge, she was transitioned to Augmentin. Wound culture grew out group B strep. She tolerated the procedure well and had improvement in her symptoms. They were doing wound care. She feels like she is capable of doing that with some assistance, which she should have at home. Her pain is adequately controlled. At the time of discharge, she was tolerating her diet without difficulty. She was ambulating. Her pain was controlled. PHYSICAL EXAMINATION: VITAL SIGNS: She was afebrile. Her vital signs were stable. Her blood sugars were elevated. CHEST: Clear to auscultation. HEART: Had a regular rate and rhythm. ABDOMEN: Soft and nontender. EXTREMITIES: Without edema. The right gluteal area had a dressing in place. DISCHARGE DIAGNOSES: 1. Right gluteal abscess, status post incision and drainage. 2. Diabetes mellitus type 2, poorly controlled. 3. Anemia. 4. Hypertension. DISCHARGE DIET: Diabetic diet. DISCHARGE ACTIVITIES: As tolerated. FOLLOWUP: She is to follow up with me in approximately one week. She will be off work through 08/01/2016. We will attempt to make arrangements for wound care clinic followup as well to help her continue to heal this wound. She has had a history of abscess before that took a while to heal. MEDICATIONS AT THE TIME OF DISCHARGE: Include nifedipine ER 60 mg p.o. daily, Percocet 5/325 one to two p.o. q.i.d. p.r.n. #60 written for, NovoLog 27 units subcutaneously t.i.d., Lantus 40 units subcutaneously daily. EUGENIA MAYS MD DR: Deven JOB#: [id number] / [id number]
== END 2016-07-23 16:10 | disposition home or self-care (01) | DRG 579 ==
LOC: ER 18:09 → 4 NORTH 20:41
PROVIDERS: ADMIT Family Medicine; ATTEND Family Medicine
PROC: 0J990ZZ Drainage of Buttock Subcutaneous Tissue and Fascia, Open Approach (ICD-10-PCS; principal; 2016-07-21 15:45)
DX: L02.31 Cutaneous abscess of buttock (principal); E11.00 Type 2 diabetes mellitus with hyperosmolarity without nonketotic hyperglycemic-hyperosmolar coma (NKHHC); L03.90 Cellulitis, unspecified; Z68.41 Body mass index [BMI] 40.0-44.9, adult; D64.9 Anemia, unspecified; I10 Essential (primary) hypertension; R26.2 Difficulty in walking, not elsewhere classified; E66.01 Morbid (severe) obesity due to excess calories; Z82.49 Family history of ischemic heart disease and other diseases of the circulatory system; Z83.3 Family history of diabetes mellitus; Z98.891 History of uterine scar from previous surgery
CPT/HCPCS: 36415; 80048; 80053; 82947; 85027; 87040; 87071; 87075; 87205; 90715; 96372; 96374; 96375; J1815; J2270; J2405; J2704; J2710; J3010; J3490; J7030; 99285-25

== ENCOUNTER → 2016-07-31 | Outpatient (CLI) | payer OTHER ==
[2016-07-23 15:00] VITALS: BP 120/62
[~2016-07-31] MED LIST changes: +INSU100I17 SQ; +NIFE60TA16 PO; +OXYC-323 PO
== END | disposition home or self-care (01) ==
LOC: PMGWOUND 09:23
PROVIDERS: ATTEND Emergency Medicine Undersea and Hyperbaric Medicine
DX: L02.31 Cutaneous abscess of buttock (principal); F17.210 Nicotine dependence, cigarettes, uncomplicated; E66.01 Morbid (severe) obesity due to excess calories; Z68.41 Body mass index [BMI] 40.0-44.9, adult; I10 Essential (primary) hypertension
CPT/HCPCS: 99213

== ENCOUNTER → 2016-08-07 | Outpatient (CLI) | payer OTHER ==
[2016-07-23 15:00] VITALS: BP 120/62
== END | disposition home or self-care (01) ==
LOC: PMGWOUND 10:33
PROVIDERS: ATTEND Emergency Medicine Undersea and Hyperbaric Medicine
DX: L02.31 Cutaneous abscess of buttock (principal); F17.210 Nicotine dependence, cigarettes, uncomplicated
CPT/HCPCS: 97597

== ENCOUNTER → 2016-08-14 | Outpatient (CLI) | payer OTHER ==
[2016-07-23 15:00] VITALS: BP 120/62
== END | disposition home or self-care (01) ==
LOC: PMGWOUND 10:35
PROVIDERS: ATTEND Emergency Medicine Undersea and Hyperbaric Medicine
DX: L02.31 Cutaneous abscess of buttock (principal); F17.210 Nicotine dependence, cigarettes, uncomplicated; I10 Essential (primary) hypertension; E66.01 Morbid (severe) obesity due to excess calories; Z68.41 Body mass index [BMI] 40.0-44.9, adult
CPT/HCPCS: 99213